=== PATIENT | female | born 1960 | race Caucasian/White ===

== ENCOUNTER 2017-09-14 08:29 | Outpatient (CLI) | payer OTHER ==
--- NOTE | 2017-09-15 15:18 | XRAY Report ---
CERVICAL SPINE: 09/14/2017 COMPARISON: No comparison. INDICATION: Cervicalgia. TECHNIQUE: Five views. FINDINGS There is mild disc space narrowing at C5-C6. There is moderate disk space narrowing at C6-C7 and C7-T1. There are small to moderate anterior osteophytes. There are moderate degenerative changes of the facets. Osteophytes cause narrowing of the bony neural foramina as follows: Right: C30C4 moderate, C4-C5 Moderate, C5-C6 Moderate-severe, C6-C7 minimal Left: C3-C4 mild, C4-C5 mild No evidence of acute fracture. Prevertebral soft tissues appear unremarkable. The lateral masses are symmetric. IMPRESSION: MODERATE CERVICAL SPONDYLOSIS DETAILED ABOVE. TD: 09/14/2017 12:19 CAMRYN
== END 2017-09-14 08:30 | disposition home or self-care (01) ==
LOC: DI.S 08:29
PROVIDERS: ATTEND Internal Medicine
DX: M47.892 Other spondylosis, cervical region (principal)
CPT/HCPCS: 72050